=== PATIENT | male | born 1995 | race Asian ===

== ENCOUNTER 2024-08-14 03:16 | Emergency (ER) | payer SELFPAY ==
[2024-08-14] MEDS: Lidocaine 1% 10 ML MDV INJECT ONE (04:00)
[2024-08-14] MEDS: Diphtheria,Pertussis(Acell),Tetanus Vaccine 0.5 ML Syringe IM ONE (04:22)
[2024-08-14] MEDS ORDERED: cefTRIAXone 1 GM, Lidocaine 1% 2.1 ML IM ONE (04:34)
[2024-08-14] MEDS: Cephalexin 500 MG Cap PO ONE (05:10)
[2024-08-14] MEDS: Acetaminophen/HYDROcodone 325-5 MG Tab PO ONE (05:10)
== END 2024-08-14 05:21 | disposition home or self-care (01) ==
LOC: JD.ED 03:16
DX: S52.022B Displaced fracture of olecranon process without intraarticular extension of left ulna, initial encounter for open fracture type I or II (principal); Z79.899 Other long term (current) drug therapy; W22.8XXA Striking against or struck by other objects, initial encounter; Z23 Encounter for immunization
CPT/HCPCS: 12002; 73080; 90471; 90715; 99283; A9270; 29125; 99282; J3490

== ENCOUNTER 2024-08-18 17:48 | Emergency (ER) | payer SELFPAY ==
[2024-08-18] MEDS: Acetaminophen/oxyCODONE 325-5 MG Tab PO ONE (18:48)
== END 2024-08-18 19:05 | disposition home or self-care (01) ==
LOC: JD.ED 17:48
DX: S52.022B Displaced fracture of olecranon process without intraarticular extension of left ulna, initial encounter for open fracture type I or II (principal); Z79.899 Other long term (current) drug therapy; X58.XXXA Exposure to other specified factors, initial encounter
CPT/HCPCS: 99283; A9270

== ENCOUNTER 2024-09-03 15:19 | Emergency (ER) | payer SELFPAY | END 2024-09-03 19:56 | disposition home or self-care (01) | LOC: JD.ED 15:19 | DX: S42.402G Unspecified fracture of lower end of left humerus, subsequent encounter for fracture with delayed healing (principal); Z79.899 Other long term (current) drug therapy; W19.XXXD Unspecified fall, subsequent encounter | CPT/HCPCS: 73080-26-LT; 73080-LT; 99283 ==